=== PATIENT | female | born 1975 | race Two or more races ===

== ENCOUNTER 2019-09-12 05:05 | Day surgery (SDC) | payer OTHER ==
[2019-09-12 13:27] VITALS: BMI 31.2
--- NOTE | 2019-09-12 15:02 | HP ---
Admitting History and Physical - Admission Chief Complaint: DUB History of Present Illness: 44yo F here for diagnostic hysteroscopy, dilation and currretage Longstanding history of HMB/DUB and resultant anemia. H/H 03/16 when last evaluated in the office. Mostly monthly cycles, no IMB. Occ irregular cycles. Last sono done in October 2018.No definite intrauterine pathology- 10cm uterus with 2.1cm fibroid, thickened ES Not currently receiving any treatment aside from Iron History Source: Patient Limitations to Obtaining History: No Limitations, Language Barrier - Past Medical History CODING FILE CLERK: No: Alzheimer's, CVA, Dementia, Migraine, Multiple Sclerosis, Peripheral Neuropathy, Parkinson's, Seizure, Syncope, TIA, Vertigo, Other Cardiovascular: No: AFIB, Aneurysm, Aortic Insufficiency, Aortic Stenosis, CAD, CHF, Deep Vein Thrombosis, HTN, Hyperlipdemia, AL, Mitral Insufficiency, Mitral Stenosis, Murmur, Pulmonary Hypertension, Other Renal/: No: Renal Failure, Renal Inusuff, BPH, Cancer, Hematuria, Hemodialysis , Neurogenic Bladder, Renal Calculi, UTI, Other Reproductive: No: Ectopic , Endometriosis, Fibroids, PID, Polycystic Ovary Syndrome, Postmenopausal, Other ...LMP: 08/20/19 ...LMP Comment: heavy, irregular ...: No Heme/Onc: Yes: Anemia - Past Surgical History Past Surgical History: Yes: None, - Smoking History Smoking history: Never smoked Have you smoked in the past 12 months: No - Alcohol/Substance Use Hx Alcohol Use: Yes (social) - Social History Usual Living Arrangement: Yes: With Child Do you think of yourself as: Straight/Heterosexual ADL: Independent History of Recent Travel: No Home Medications - Allergies Allergies/Adverse Reactions: Allergies Allergy/AdvReac Type Severity Reaction Status Date / Time No Known Allergies Allergy Verified 09/12/19 14:48 - Home Medications Home Medications: Ambulatory Orders Acetaminophen 325 mg PO PRN PRN 09/12/19 Ibuprofen 600 mg PO Q6H PRN #30 tablet 09/12/19 Review of Systems - Review of Systems Constitutional: denies: No Symptoms, Chills, Diaphoresis, Fever, Lethargy, Loss of Appetite, Malaise, Night Sweats, Unintentional Wgt. Loss, Weakness, Other Genitourinary: reports: Vaginal Bleeding Physical Examination Vital Signs: Vital Signs Temperature 98.0 F 01/22/20 14:48 Pulse Rate 53 L 09/12/19 14:48 Respiratory Rate 09/12/19 14:48 Blood Pressure 136/66 09/12/19 14:48 O2 Sat by Pulse Oximetry (%) 100 09/12/19 14:41 Constitutional: Yes: Well Nourished, No Distress, Calm Cardiovascular: Yes: WNL, Regular Rate and Rhythm Respiratory: Yes: WNL, Regular, CTA Bilaterally Gastrointestinal: Yes: WNL, Normal Bowel Sounds Imaging - Results Ultrasound: Report Reviewed Problem List - Problems (1) DUB (dysfunctional uterine bleeding) Code(s): N93.8 - OTHER SPECIFIED ABNORMAL UTERINE AND VAGINAL BLEEDING Assessment/Plan 44yo with DUB/HMB here for Diagnostic hysteroscopy, D&C Sonogram reviewed, no definite intrauterine pathology aside from thickened ES. No known submucosal fibroid component per US. NPO, IVFs No antibiotics TEDs Risk of procedure reviewed including bleeding, infection and injury to uterus/ vagina/cervix. Bessy Wolff MD
[2019-09-12] MEDS ORDERED: PROPOFOL 20 ML ONE (15:15)
[2019-09-12] MEDS ORDERED: MIDAZOLAM HCL 2 MG/2 ML SINGLE DOSE VIAL ONE (15:15)
[2019-09-12] MEDS ORDERED: fentaNYL CITRATE 250 MCG/5 ML VIAL ONE (15:15)
[2019-09-12] MEDS ORDERED: SUCCINYLCHOLINE CHLORIDE 200 MG/10 ML SYRINGE ONE (15:16)
[2019-09-12] MEDS ORDERED: oxyCODONE HCL 5 MG TABLET PO PRN (16:17)
[2019-09-12] MEDS ORDERED: PROMETHAZINE HCL 25 MG/1 ML VIAL IVPUSH PRN (16:17)
[2019-09-12] MEDS ORDERED: ONDANSETRON 4 MG/2 ML VIAL IVPUSH PRN (16:17)
--- NOTE | 2019-09-12 16:34 | OP ---
Operative Note - Note: Operative Date: 09/12/19 Pre-Operative Diagnosis: Dysfunctional Uterine Bleeding, Anemia Operation: Diagnostic Hysteroscopy, Dilation and Curettage Findings: Normal endometrial cavity, normal ostia, normal cervix and normal vagina Post-Operative Diagnosis: Same as Pre-op Surgeon: Symone Wolff Anesthesia: MAC Specimens Removed: Endometrial Curettage Estimated Blood Loss (mls): 25 Operative Report Dictated: Yes
[2019-09-12] MEDS ORDERED: IBUPROFEN 600 MG TABLET (FP) PO ONE (17:37)
[2019-09-12] MEDS ORDERED: IBUPROFEN 400 MG TABLET (FP) PO ONE (17:46)
[2019-09-12 18:35] VITALS: BP 106/60; PULSE 62; TEMP 97.8
--- NOTE | 2019-09-13 14:27 | OP ---
DATE OF OPERATION: 09/12/2019 PREOPERATIVE DIAGNOSES: Dysfunctional uterine bleeding. Uterine fibroids. Anemia. POSTOPERATIVE DIAGNOSES Dysfunctional uterine bleeding. Uterine fibroids. Anemia. PROCEDURES: Diagnostic hysteroscopy. Dilation and curettage. SURGEON: Dago Pollack MD ANESTHESIA: MAC. INTRAVENOUS FLUIDS: Per Anesthesia record. ESTIMATED BLOOD LOSS: 25. URINE OUTPUT: Not measured. FINDINGS: Normal vagina. Normal cervix. Normal endocervical canal. Normal intrauterine cavity. Normal ostia bilaterally. No fibroids, polyps visualized. COMPLICATIONS: None. CONDITION: Stable to recovery room. NATURE OF THE PROCEDURE: After the appropriate consents were signed, patient was taken to the operating room. Anesthesia was administered. She was placed in dorsal lithotomy position. Operative field was prepped and draped in normal sterile fashion. Timeout was performed, confirming correct patient and procedure. Sterile speculum was inserted into the vagina with good visualization of the cervix. The anterior lip of the cervix was grasped with a single-tooth tenaculum. Cervix was then dilated with the Mtz dilators to accommodate the 5-mm diagnostic hysteroscope. The uterus was sounded and noted to be 10 cm. The hysteroscope was inserted under fluid distention. A false track was identified in the cervix; however, no perforation was noted. The true cervical canal was then identified and followed through. The endometrial cavity was distended with fluid. Both ostia were visualized. No abnormalities, no masses were appreciated in the intrauterine cavity. The hysteroscope was then removed. Gentle curettage was then performed in all four quadrants, until a gritty texture was noted. Hemostasis was noted on removal of the curettage. The single-tooth tenaculum was removed from the anterior lip of the cervix. Pressure was held to achieve hemostasis at the bite sites. The patient's right bite site, however, persisted the bleeding and silver nitrate was applied and again with pressure, hemostasis was then achieved. All instruments were removed. Sponge, lap, needle counts were correct. The patient did not receive any Ancef or antibiotics. She was taken from the operating room to the recovery area in stable condition. DAGO POLLACK MD [id number]
--- NOTE | 2019-09-14 13:38 | PATH ---
Surgical Pathology Report Patient Name: EHNRY SCHAFER [facility]. Rec. #: [id number] /Age/Gender: 1975 (Age: 44) / F Account: [id number] Location: [facility] Taken: 09/12/2019 Received: 09/13/2019 Reported: 09/14/2019 Physicians: Symone Wolff Specimen(s) Received ENDOMETRIAL CURETTINGS Clinical History Abnormal uterine bleeding Final Diagnosis ENDOMETRIAL CURETTINGS, DILATION AND CURETTAGE: POLYP OF MIXED ENDOMETRIAL AND ENDOCERVICAL TYPE, SECRETORY ENDOMETRIUM, SCANT SUPERFICIAL MYOMETRIUM, BENIGN ENDOCERVICAL TISSUE ADMIXED WITH BLOOD. Electronically Signed Madelin Johnston M.D. Gross Description Received in formalin labeled "endometrial curettings," is a 4.5 x 4.5 x 0.3 cm aggregate of alvarado soft tissue fragments admixed with blood clot. The formalin is filtered and the specimen is entirely submitted in 4 cassettes. DL/09/13/2019 saudi/09/13/2019
== END 2019-09-12 18:48 | disposition home or self-care (01) ==
LOC: JASU-SURG 05:05
PROVIDERS: ATTEND Obstetrics & Gynecology
PROC: 0UDB7ZX Extraction of Endometrium, Via Natural or Artificial Opening, Diagnostic (ICD-10-PCS; principal; 2019-09-12 15:00)
PROC: 0UJD8ZZ Inspection of Uterus and Cervix, Via Natural or Artificial Opening Endoscopic (ICD-10-PCS; 2019-09-12 15:00)
DX: N93.9 Abnormal uterine and vaginal bleeding, unspecified (principal); D25.9 Leiomyoma of uterus, unspecified; D64.9 Anemia, unspecified
CPT/HCPCS: 86900; 88305-TC; 94760

== ENCOUNTER → 2025-02-13 | Day surgery (SDC) | payer OTHER | END | disposition home or self-care (01) | LOC: JMAMMO-SUR 07:21 | PROVIDERS: ATTEND Obstetrics & Gynecology | PROC: 0H9T3ZX Drainage of Right Breast, Percutaneous Approach, Diagnostic (ICD-10-PCS; principal; 2025-02-13) | DX: N60.11 Diffuse cystic mastopathy of right breast (principal) | CPT/HCPCS: 19083; 76942-TC; 77065-TC; 87899; 88305-TC; A4648 ==